=== PATIENT | male | born 1995 ===

== ENCOUNTER 2017-03-18 10:44 | Emergency (ER) | payer BC, MEDICAID, OTHER ==
[2017-03-18 10:50] VITALS: BP 131/73; PULSE 52; RESP 18; TEMP 97.5; O2SAT 100
--- NOTE | 2017-03-18 11:29 | C.PDOC ---
History Of Present Illness Pt c/o right lower back pain radiating to RLE. States that pain started after he started coughing. Time Seen by Provider: 03/18/17 10:54 Chief Complaint (Nursing): Back Pain History Per: Patient Onset/Duration Of Symptoms: Days (2), Waxing/Waning Current Symptoms Are (Timing): Worse Quality Of Discomfort: Sharp, "Pain" Severity: Moderate Previous Symptoms: None Associated Symptoms: None. denies: Incontinence, New Weakness, New Numbness Exacerbating Factor(s): Movement Additional History Per: Prior Records Past Medical History Reviewed: Historical Data, Nursing Documentation, Vital Signs Vital Signs: Last Vital Signs Temp 97.5 F L 03/18/17 10:47 Pulse 52 L 03/18/17 10:47 Resp 18 03/18/17 10:47 BP 131/73 03/18/17 10:47 Pulse Ox 100 03/18/17 11:35 - Medical History PMH: Bipolar Disorder Other PMH: ADHD Surgical History: No Surg Hx - [facility] Procedures APPLICATION OF SPLINT (09/19/13) Family History: States: Unknown Family Hx - Social History Hx Tobacco Use: No Hx Alcohol Use: Yes Hx Substance Use: Yes (Smokes marijuana daily) - Immunization History Hx Tetanus Toxoid Vaccination: Yes Hx Influenza Vaccination: Yes Hx Pneumococcal Vaccination: No Review Of Systems Except As Marked, All Systems Reviewed And Found Negative. Constitutional: Negative for: Fever, Weakness ENT: Positive for: Nose Congestion Cardiovascular: Negative for: Chest Pain Respiratory: Positive for: Cough. Negative for: Shortness of Breath, Hemoptysis Gastrointestinal: Negative for: Vomiting, Abdominal Pain Genitourinary: Negative for: Dysuria, Incontinence, Hematuria Musculoskeletal: Negative for: Neck Pain Skin: Negative for: Rash Neurological: Negative for: Weakness, Numbness, Seizures, Altered Mental Status Physical Exam - Physical Exam Appears: Non-toxic, No Acute Distress Skin: Normal Color, Warm, Dry, No Rash Head: Atraumatic, Normacephalic Eye(s): bilateral: PERRL, EOMI Neck: Normal ROM, Supple Cardiovascular: Rhythm Regular Respiratory: Normal Breath Sounds, No Accessory Muscle Use Gastrointestinal/Abdominal: Soft, No Tenderness Back: No CVA Tenderness, No Vertebral Tenderness, Paraspinal Tenderness (right lower) Extremity: Normal ROM, No Pedal Edema, No Calf Tenderness Extremity: Bilateral: Normal Color And Temperature Neurological/Psych: Oriented x3, Normal Motor, Normal Sensation ED Course And Treatment O2 Sat by Pulse Oximetry: 100 Pulse Ox Interpretation: Normal - Radiology CXR: Interpreted by Me, Viewed By Me CXR Interpretation: Yes: Other (bronchitis) - Other Rad LS spine x-rays X-Ray: Interpreted by Me, Viewed By Me Interpretation: No acute fx or subluxation. Reassessment Condition: Improved Disposition Counseled Patient/Family Regarding: Studies Performed, Diagnosis, Need For Followup, Rx Given, Smoking Cessation - Disposition Disposition Time: 12:28 Condition: IMPROVED Additional Instructions: Stop smoking. Follow up with your doctor for further evaluation and treatment. Return to the ER if you develop fever, shortness of breath, chest pain, abdominal pain, trouble urinating, weakness, numbness, worsening of symptoms or if you have any other concerns. Prescriptions: Azithromycin [Zithromax] 1 dose PO DAILY #1 pkt Naproxen [Naprosyn] 1 tab PO BID PRN #20 tab PRN Reason: Pain Instructions: Sciatica (ED), Acute Bronchitis (ED) - Clinical Impression Clinical Impression: Right sided sciatica, Bronchitis
--- NOTE | 2017-03-18 14:32 | RAD ---
HISTORY: Cough COMPARISON: No prior. TECHNIQUE: Chest PA and lateral FINDINGS: LUNGS: No active pulmonary disease. PLEURA: No significant pleural effusion identified. No pneumothorax apparent. CARDIOVASCULAR: Normal. OSSEOUS STRUCTURES: No significant abnormalities. VISUALIZED UPPER ABDOMEN: Normal. OTHER FINDINGS: None. IMPRESSION: No radiographic evidence of pneumonia.
--- NOTE | 2017-03-18 14:48 | RAD ---
PROCEDURE: Radiographs of the Lumbar Spine. HISTORY: Low back pain radiating down RLE. COMPARISON: No prior. FINDINGS: BONES: Normal alignment. No listhesis. No fracture. DISC SPACES: Unremarkable. OTHER FINDINGS: None. IMPRESSION: No evidence of acute fracture or subluxation.
== END 2017-03-18 12:39 | disposition home or self-care (01) ==
LOC: C.ER 10:44
DX: J40 Bronchitis, not specified as acute or chronic (principal); M54.31 Sciatica, right side
CPT/HCPCS: 71020; 72100; 96372; 99285; J1885

== ENCOUNTER 2017-06-10 21:40 | Emergency (ER) | payer BC ==
[2017-06-10 21:57] VITALS: RESP 18; O2SAT 100
[2017-06-10] MEDS ORDERED: Dexamethasone 4 mg/1 ml IM STA (22:19)
[2017-06-10] MEDS ORDERED: Dexamethasone 4 mg/1 ml ONE (22:23)
--- NOTE | 2017-06-10 22:53 | C.PDOC ---
History Of Present Illness 21 year old male presents to the ED with complaints of a sore throat and pain with swallowing for three days. Patient denies fever, difficulty breathing, known allergens, or URI symptoms. Time Seen by Provider: 06/10/17 22:00 Chief Complaint (Nursing): ENT Problem History Per: Patient History/Exam Limitations: None Onset/Duration Of Symptoms: Days (3 days ) Current Symptoms Are (Timing): Still Present Quality (Mouth/Throat): Other (sore throat ) Anticoagulant/Antiplatlet Use?: No Recent Aspirin Use: No Past Medical History Reviewed: Historical Data, Nursing Documentation, Vital Signs Vital Signs: Last Vital Signs Temp 98.6 F 06/10/17 23:04 Pulse 60 06/10/17 23:04 Resp 18 06/10/17 23:04 BP 126/82 06/10/17 23:04 Pulse Ox 100 06/11/17 02:03 - Medical History PMH: Bipolar Disorder - [facility] Procedures APPLICATION OF SPLINT (09/19/13) Family History: States: Unknown Family Hx - Social History Hx Tobacco Use: No Hx Alcohol Use: Yes Hx Substance Use: Yes (Smokes marijuana daily) - Immunization History Hx Tetanus Toxoid Vaccination: Yes Hx Influenza Vaccination: No Hx Pneumococcal Vaccination: No Review Of Systems Constitutional: Negative for: Fever, Chills ENT: Positive for: Other (Sore throat and pain with swallowing ) Cardiovascular: Negative for: Chest Pain Respiratory: Negative for: Cough, Shortness of Breath Gastrointestinal: Negative for: Nausea, Vomiting Physical Exam - Physical Exam Appears: Non-toxic, No Acute Distress, Other (Clear speech ) Skin: Warm, Dry Head: Atraumatic Eye(s): bilateral: Normal Inspection, PERRL, EOMI Ear(s): Bilateral: Normal Nose: Normal Oral Mucosa: Moist Tongue: Normal Appearing, No Swelling Lips: Normal Appearing, No Swelling Throat: Erythema (enlarged erythematus left tonsil ), No Exudate, Other (Uvular deviation) Neck: Other (neck swelling) Lymphatic: Other (left Submandibular adenopathy, tender to palpation. ) Chest: Symmetrical, No Deformity Cardiovascular: Rhythm Regular Respiratory: Normal Breath Sounds, No Rhonchi, No Wheezing Neurological/Psych: Oriented x3, Normal Speech ED Course And Treatment O2 Sat by Pulse Oximetry: 100 (room air ) Progress Note: Patient was given Cleocin, Decadron Inj, Motrin and instructed to follow up with ENT. Pt understands plan and return precautions Reassessment Condition: Improved Disposition Counseled Patient/Family Regarding: Diagnosis, Need For Followup, Rx Given - Disposition Referrals: Jay Shelton MD [Staff Provider] - Disposition: HOME/ ROUTINE Disposition Time: 22:49 Condition: STABLE Additional Instructions: Please follow up with ENT Gargle with warm water/ salt Return to ER if facial swelling, neck swelling, drooling or worse Prescriptions: Clindamycin [Cleocin] 300 mg PO QID #28 cap Ibuprofen [Motrin] 600 mg PO Q6H #30 tab predniSONE [Prednisone] 40 mg PO DAILY #8 tab Instructions: Peritonsillar Abscess (ED) Forms: [facility] (Occitan), Work Excuse - Clinical Impression Clinical Impression: Peritonsillar abscess - Scribe Statement The provider has reviewed the documentation as recorded by the Scribe Debbie Mart All medical record entries made by the Scribe were at my direction and personally dictated by me. I have reviewed the chart and agree that the record accurately reflects my personal performance of the history, physical exam, medical decision making, and the department course for this patient. I have also personally directed, reviewed, and agree with the discharge instructions and disposition.
[2017-06-10 23:05] VITALS: BP 126/82; PULSE 60; TEMP 98.6
== END 2017-06-10 23:05 | disposition home or self-care (01) ==
LOC: C.ER 21:40
DX: J36 Peritonsillar abscess (principal)
CPT/HCPCS: 96372; 99283; J1100

== ENCOUNTER 2018-08-11 14:50 | Emergency (ER) | payer BC ==
[2018-08-11 15:07] VITALS: TEMP 98.3; O2SAT 100
[2018-08-11 15:45] LABS: URINE AMORPHOUS SEDIMENT MODERATE /ul (<OCC); URINE BILIRUBIN NEGATIVE (NEGATIVE); URINE BLOOD NEGATIVE (NEGATIVE); URINE CLARITY Hazy (Clear); URINE COLOR Yellow (YELLOW); URINE GLUCOSE (UA) NORMAL (Normal); URINE LEUKOCYTE ESTERASE TRACE Leu/uL (Negative); URINE PROTEIN NEGATIVE (NEGATIVE); URINE UROBILINOGEN NORMAL mg/dL (0.2-1.0)
[2018-08-11] MEDS ORDERED: cefTRIAXone (Rocephin) 250 mg Inj IM STA (16:43)
--- NOTE | 2018-08-11 16:52 | C.PDOC ---
History Of Present Illness 23-year-old male, presents to the emergency department with complaints of urinary frequency, burning, dark colored urine and back pain. Pt admits to not drinking enough water during the day. Patient denies any new sexual partners, penile discharge or any other associated symptoms. No other complaints at this time. Chief Complaint (Nursing): Male Genitourinary History Per: Patient History/Exam Limitations: no limitations Current Symptoms Are (Timing): Still Present Past Medical History Reviewed: Historical Data, Nursing Documentation, Vital Signs Vital Signs: Last Vital Signs Temp 98.3 F 08/11/18 15:01 Pulse 75 08/11/18 15:01 Resp 16 08/11/18 15:01 BP 111/67 08/11/18 15:01 Pulse Ox 100 08/11/18 15:01 - Medical History PMH: Bipolar Disorder, Depression Denies: Diabetes, Hepatitis, HIV, HTN, Seizures, Sexually Transmitted Disease - [facility] Procedures APPLICATION OF SPLINT (09/19/13) Family History: States: No Known Family Hx - Social History Hx Tobacco Use: No Hx Alcohol Use: Yes Hx Substance Use: Yes - Immunization History Hx Tetanus Toxoid Vaccination: No Hx Influenza Vaccination: No Hx Pneumococcal Vaccination: No Review Of Systems Constitutional: Negative for: Fever Gastrointestinal: Negative for: Vomiting Genitourinary: Positive for: Dysuria, Frequency. Negative for: Incontinence, Penile Discharge, Scrotal Pain, Rash, Penile Pain Musculoskeletal: Positive for: Back Pain ED Course And Treatment O2 Sat by Pulse Oximetry: 100 Pulse Ox Interpretation: Normal (RA) Medical Decision Making Medical Decision Making: Treated with Rocephin and Zithromax. Disposition - Disposition Disposition: HOME/ ROUTINE Disposition Time: 16:57 Condition: GOOD Additional Instructions: Follow up with PMD within 1-2 days. Return to ED if feel worse. Prescriptions: Ciprofloxacin/Ciprofloxa HCl [Ciprofloxacin] 500 mg PO Q12 #14 ter Forms: [facility] (French) - Clinical Impression Clinical Impression: UTI (urinary tract infection) - Scribe Statement The provider has reviewed the documentation as recorded by the Scribe (Ana Victoria) All medical record entries made by the Scribe were at my direction and personally dictated by me. I have reviewed the chart and agree that the record accurately reflects my personal performance of the history, physical exam, medical decision making, and the department course for this patient. I have also personally directed, reviewed, and agree with the discharge instructions and disposition.
[2018-08-11 17:41] VITALS: BP 113/68; PULSE 69; RESP 18
== END 2018-08-11 17:36 | disposition home or self-care (01) ==
LOC: C.ER 14:50
DX: N39.0 Urinary tract infection, site not specified (principal)
CPT/HCPCS: 81001; 87086; 87491; 87591; 96372; 99284; J0696

== ENCOUNTER 2018-10-13 22:29 | Emergency (ER) | payer BC ==
[2018-10-13 22:39] VITALS: TEMP 97.7
[2018-10-13 22:40] VITALS: BP 136/72; PULSE 71; O2SAT 100
[2018-10-13] MEDS ORDERED: Lidocaine Hydrochloride 5 ML INJ ONE (23:12)
--- NOTE | 2018-10-13 23:40 | C.PDOC ---
History Of Present Illness 23 year old male presents to the ED c/o painful cyst to back of right ear. Patient reports he had a lump behind his right ear for the past 6 months, but during the past 3 days lump became painful. Patient noticed area has some redness. Patient denies fever, chills, headache, rash, injury. Time Seen by Provider: 10/13/18 22:42 Chief Complaint (Nursing): Abnormal Skin Integrity History Per: Patient History/Exam Limitations: no limitations Onset/Duration Of Symptoms: Days (3) Current Symptoms Are (Timing): Still Present Location Of Injury: Right: Face (ear) Quality Of Symptoms: Painful, Swollen Recent travel outside of the [place]: No Additional History Per: Patient Past Medical History Reviewed: Historical Data, Nursing Documentation, Vital Signs Vital Signs: Last Vital Signs Temp 97.7 F 10/13/18 22:39 Pulse 71 10/13/18 22:39 Resp 17 10/13/18 22:39 BP 136/72 10/13/18 22:39 Pulse Ox 100 10/13/18 22:39 - Medical History PMH: Bipolar Disorder, Depression Denies: Diabetes, Hepatitis, HIV, HTN, Seizures, Sexually Transmitted Disease Surgical History: No Surg Hx - [facility] Procedures APPLICATION OF SPLINT (09/19/13) Family History: States: Unknown Family Hx - Social History Hx Tobacco Use: No Hx Alcohol Use: Yes Hx Substance Use: Yes - Immunization History Hx Tetanus Toxoid Vaccination: No Hx Influenza Vaccination: No Hx Pneumococcal Vaccination: No Review Of Systems Constitutional: Negative for: Fever, Chills Eyes: Negative for: Vision Change ENT: Positive for: Ear Pain (ear lump). Negative for: Ear Discharge Skin: Negative for: Rash Neurological: Negative for: Headache Physical Exam - Physical Exam Appears: Non-toxic, No Acute Distress Skin: Normal Color, Warm, Dry Head: Atraumatic, Normacephalic Eye(s): bilateral: Normal Inspection, PERRL, EOMI Ear(s): Right: Other (pea sized area of induration, tenderness posterior aspect of right pinna), Bilateral: Normal Nose: No Discharge Oral Mucosa: Moist Throat: Normal Neck: Normal ROM, Supple Lymphatic: No Adenopathy Extremity: Normal ROM Neurological/Psych: Oriented x3 Gait: Steady ED Course And Treatment O2 Sat by Pulse Oximetry: 100 (ON RA) Pulse Ox Interpretation: Normal Progress Note: On reassessment, patient is resting comfortably, and is in no acute distress. Patient was instructed to follow up with physician/clinic in 1-2 days for wound check, Rx given for antibiotics , return instructions were given. - Incision & Drainage Of Abscess Anesthesia: Lidocaine 1% Prep Used: Sterile Water, Betadine Procedure: Incised W/Scalpel Blade#: (15), Drained Pus, Irrigated Cavity W/Saline, Probed To Break Up Loculations Disposition Counseled Patient/Family Regarding: Diagnosis, Need For Followup, Rx Given - Disposition Referrals: 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 - Scribe Statement The provider has reviewed the documentation as recorded by the Scribe Homar Price All medical record entries made by the Scribe were at my direction and personally dictated by me. I have reviewed the chart and agree that the record accurately reflects my personal performance of the history, physical exam, medical decision making, and the department course for this patient. I have also personally directed, reviewed, and agree with the discharge instructions and disposition.
[2018-10-13 23:56] VITALS: RESP 20
== END 2018-10-13 23:55 | disposition home or self-care (01) ==
LOC: C.ER 22:29
DX: H60.01 Abscess of right external ear (principal)